=== PATIENT | male | born 1960 | race Caucasian/White ===

== ENCOUNTER 2021-05-09 13:48 | Outpatient (CLI) | payer OTHER ==
[2021-05-09] VITALS (8 sets, daily range): BP systolic 117–148; BP diastolic 60–96; PULSE 83–92; TEMP 98.9
[~2021-05-09] VITALS: Ht 190.5 cm; Wt 131.0 kg
[~2021-05-09 13:48] MED LIST: CLEOCIN HC150 MG/CAP PO; FORTAMET500 M1 PO; GLUCOTROL 5M5 MG/TAB PO; HCTZ 25MG TAB25 MG PO; LOPRESSOR 550 MG/TAB PO; PRINIVIL40 MG PO; ZOCOR 40MG40 MG PO; ZYLOPRIM 100MG100 MG PO
[2021-05-09] MEDS ORDERED: ASPIRIN E.C. 8181 MG PO (14:11)
[2021-05-09] MEDS ORDERED: VICTOZA6 MG/ML SQ (14:11)
[2021-05-09] MEDS ORDERED: COMPLETE MULTI1 TAB PO (14:12)
[2021-05-09] MEDS ORDERED: CLARITIN 1010 MG/TAB PO (14:12)
[2021-05-09] MEDS ORDERED: PROBIOTIC BLEN1 EACH PO (14:12)
[2021-05-09] MEDS ORDERED: PRILOSEC 20MG20 MG PO (14:12)
--- NOTE | 2021-05-09 15:15 | NUR ---
Pt tolerated infusion and observation period without issue. INT DC'd without issue. INT DC'd with catheter intact. He will be assisted out to ED entrance for discharge.
== END 2021-05-09 18:08 | disposition home or self-care (01) ==
LOC: EUO 13:48
DX: U07.1 COVID-19 (principal); E11.9 Type 2 diabetes mellitus without complications; I51.9 Heart disease, unspecified
CPT/HCPCS: M0245